=== PATIENT | male | born 1980 | race Caucasian/White ===

== ENCOUNTER 2016-08-24 01:38 | Emergency (ER) | payer SELFPAY ==
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
--- NOTE | 2016-08-24 02:41 | ED CLINICAL REPORT ---
Clinical Report - Physicians/Mid Levels [facility] [address] [place] [address] 08/24/2016 1:39 [id number] Time Seen: 02:34. Arrived- By private vehicle. Historian- patient. HISTORY OF PRESENT ILLNESS Chief Complaint: clear to book for senior living. This started just prior to arrival. (The patient was brought to the emergency room by the [place] [employer]. He has been arrested and is to be taken to senior living they would like him to be cleared to book. Patient denies any concerns. He says that he is healthy.). REVIEW OF SYSTEMS No chills, fever, calf pain, chest pain or cough. No difficulty breathing, pedal edema, palpitations, abdominal pain or black stools. No bloody stools, constipation, diarrhea, nausea or vomiting. No urinary problems. All systems otherwise negative, except as recorded above. SOCIAL HISTORY Current every day heavy tobacco smoker (cigarette)- less than 1 pack per day. Alcohol use. Last drink was just prior to arrival. Under the influence in E.D. No drug use. FAMILY HISTORY Denies family medical history. ADDITIONAL NOTES The nursing notes have been reviewed. PHYSICAL EXAM Vital Signs: 08/24/2016 01:35 BP: 117/74. HR: 99. RR: 16. O2 saturation: 98%. Temp: 97.7 F. Pain level now: 0/10. Have been reviewed. Appearance: Alert. Eyes: Pupils equal, round and reactive to light. ENT: Pharynx normal. Neck: Neck supple. CVS: Normal heart rate and rhythm. Heart sounds normal. Respiratory: No respiratory distress. Breath sounds normal. Abdomen: No visible injury. Soft and nontender. Bowel sounds normal. No organomegaly. No mass. Back: Normal inspection. Skin: Skin warm and dry. Normal skin color. Normal skin turgor. Extremities: Extremities exhibit normal ROM. No calf tenderness. No lower extremity edema. Neuro: No motor deficit. No sensory deficit. PROGRESS AND PROCEDURES Course of Care: Patient is stable. Patient/family counseled. Old medical records reviewed. Disposition: Discharged. Condition: stable. CLINICAL IMPRESSION Normal exam. INSTRUCTIONS (medically cleared for senior living). Follow-up: Follow up with your doctor as needed. Understanding of the discharge instructions verbalized by patient. (Electronically signed by Christiano Otoole MD 08/25/2016 7:49)
--- NOTE | 2016-08-24 02:41 | ED CLINICAL REPORT ---
Clinical Report - Physicians/Mid Levels [facility] [address] [place] [address] 08/24/2016 1:39 [id number] Time Seen: 02:34. Arrived- By private vehicle. Historian- patient. HISTORY OF PRESENT ILLNESS Chief Complaint: clear to book for nursing home. This started just prior to arrival. (The patient was brought to the emergency room by the [place] [employer]. He has been arrested and is to be taken to nursing home they would like him to be cleared to book. Patient denies any concerns. He says that he is healthy.). REVIEW OF SYSTEMS No chills, fever, calf pain, chest pain or cough. No difficulty breathing, pedal edema, palpitations, abdominal pain or black stools. No bloody stools, constipation, diarrhea, nausea or vomiting. No urinary problems. All systems otherwise negative, except as recorded above. SOCIAL HISTORY Current every day heavy tobacco smoker (cigarette)- less than 1 pack per day. Alcohol use. Last drink was just prior to arrival. Under the influence in E.D. No drug use. FAMILY HISTORY Denies family medical history. ADDITIONAL NOTES The nursing notes have been reviewed. PHYSICAL EXAM Vital Signs: 08/24/2016 01:35 BP: 117/74. HR: 99. RR: 16. O2 saturation: 98%. Temp: 97.7 F. Pain level now: 0/10. Have been reviewed. Appearance: Alert. Eyes: Pupils equal, round and reactive to light. ENT: Pharynx normal. Neck: Neck supple. CVS: Normal heart rate and rhythm. Heart sounds normal. Respiratory: No respiratory distress. Breath sounds normal. Abdomen: No visible injury. Soft and nontender. Bowel sounds normal. No organomegaly. No mass. Back: Normal inspection. Skin: Skin warm and dry. Normal skin color. Normal skin turgor. Extremities: Extremities exhibit normal ROM. No calf tenderness. No lower extremity edema. Neuro: No motor deficit. No sensory deficit. PROGRESS AND PROCEDURES Course of Care: Patient is stable. Patient/family counseled. Old medical records reviewed. Disposition: Discharged. Condition: stable. CLINICAL IMPRESSION Normal exam. INSTRUCTIONS (medically cleared for nursing home). Follow-up: Follow up with your doctor as needed. Understanding of the discharge instructions verbalized by patient. (Electronically signed by Christiaon Otoole MD 08/25/2016 7:49)
--- NOTE | 2016-08-25 07:50 | ED DISCHARGE INSTRUCTIONS ---
Patient: ERIC BUTT General Instructions [facility] VisitID: [id number] [place] [address] 35y, M Registration Date/Time: 08/24/2016 Normal exam. INSTRUCTIONS (medically cleared for residential). Follow-up: Follow up with your doctor as needed. Understanding of the discharge instructions verbalized by patient. ADDITIONAL INFORMATION Long-Term Clearance You have been evaluated today for any illness or injury that may require special attention while you are in residential. It appears that your condition is stable at this time. You have been medically cleared for residential. Follow any special advice given regarding the care of any illness or injury present. Notify residential personnel if there is any worsening of your symptoms or if new symptoms appear. When you are released from residential, follow up with your own medical doctor or the clinic that you have been referred to. If you do not know where to go after you are released, contact us for referral information. You have been given the following additional information: Long-Term Clearance (Electronically signed by Christiano Otoole MD 08/25/2016 7:49)
--- NOTE | 2016-08-25 07:50 | ED DISCHARGE INSTRUCTIONS ---
Patient: ERIC BUTT General Instructions [facility] VisitID: [id number] [place] [address] 35y, M Registration Date/Time: 08/24/2016 Normal exam. INSTRUCTIONS (medically cleared for longterm). Follow-up: Follow up with your doctor as needed. Understanding of the discharge instructions verbalized by patient. ADDITIONAL INFORMATION Intermediate Clearance You have been evaluated today for any illness or injury that may require special attention while you are in longterm. It appears that your condition is stable at this time. You have been medically cleared for longterm. Follow any special advice given regarding the care of any illness or injury present. Notify longterm personnel if there is any worsening of your symptoms or if new symptoms appear. When you are released from longterm, follow up with your own medical doctor or the clinic that you have been referred to. If you do not know where to go after you are released, contact us for referral information. You have been given the following additional information: Intermediate Clearance (Electronically signed by Christiano Otoole MD 08/25/2016 7:49)
--- NOTE | 2016-08-25 07:50 | ED MAR SUMMARY ---
..... Medication Administration Record [facility] [address] [place] [address] Patient: ERIC BUTT Visit ID: [id number] 35y, M Weight: 90.7 kg Height/Length: 71 in BMI: 27.9 ALLERGIES: No Known Drug Allergy
--- NOTE | 2016-08-25 07:50 | ED MED RECONCILIATION SUMMARY ---
Patient: ERIC BUTT Medication Reconciliation Report [facility] VisitID: [id number] [address] [place] [address] 35y, M Registration Date/Time: 08/24/2016 Weight: 90.7 kg Height/Length: 71 in. BMI: 27.9 ALLERGIES: No Known Drug Allergy The patient's Home Medications are listed below: NONE. The source(s) of the original Home Medication information: patient The following Medications were given to the patient in the Emergency Department: None. The following Medications were prescribed to the patient: None.
--- NOTE | 2016-08-25 07:50 | ED MED RECONCILIATION SUMMARY ---
Patient: ERIC BUTT Medication Reconciliation Report [facility] VisitID: [id number] [address] [place] [address] 35y, M Registration Date/Time: 08/24/2016 Weight: 90.7 kg Height/Length: 71 in. BMI: 27.9 ALLERGIES: No Known Drug Allergy The patient's Home Medications are listed below: NONE. The source(s) of the original Home Medication information: patient The following Medications were given to the patient in the Emergency Department: None. The following Medications were prescribed to the patient: None.
--- NOTE | 2016-08-25 07:50 | ED MAR SUMMARY ---
..... Medication Administration Record [facility] [address] [place] [address] Patient: ERIC BUTT Visit ID: [id number] 35y, M Weight: 90.7 kg Height/Length: 71 in BMI: 27.9 ALLERGIES: No Known Drug Allergy
== END 2016-08-24 02:49 ==
LOC: ED SRH 01:38
DX: Z02.89 Encounter for other administrative examinations (principal)